=== PATIENT | male | born 1940 | race Caucasian/White ===

== ENCOUNTER 2021-09-14 16:00 | Observation (INO) | payer MEDICARE ==
[2021-09-14] MEDS ORDERED: SODIUM CHLORIDE 0.9% 1,000 ML IV STA (17:41)
[2021-09-14 18:18] LABS: Basophils # (A) 0.1 k/uL (0-0.2); Basophils % (A) 1 %; Eosinophils # (A) 0.3 k/uL (0-0.7); Eosinophils % (A) 3 %; HCT 50.6 % (39.0-53.0); HGB 16.5 gm/dL (13.0-17.5); Lymphocytes % (A) 19 %; MCH 29.4 pg (25.0-35.0); MCHC 32.7 g/dL (31.0-37.0); MCV 89.9 fL (80.0-100.0); Mean Platelet Volume 9.3; Monocytes # (A) 0.7 k/uL (0-1.0); Monocytes % (A) 7 %; Neutrophils # (A) 7.4 k/uL (1.3-7.7); Neutrophils % (A) 69 %; Platelet Count 174 k/uL (150-450); RBC 5.63 m/uL (4.30-5.90); RDW 12.8 % (11.5-15.5); WBC 10.8 k/uL (3.8-10.6)
[2021-09-14 18:35] LABS: Partial Thromboplastin Time 23.2 sec (22.0-30.0); Prothrombin Time 10.7 sec (9.0-12.0)
--- NOTE | 2021-09-14 18:58 | ED ---
GI Bleed HPI - General Chief complaint: GI Bleed Stated complaint: Rectal Bleeding/hernia Time Seen by Provider: 09/14/21 17:25 Source: patient, family Mode of arrival: ambulatory Limitations: no limitations - History of Present Illness Initial comments: Patient is a 81-year-old male who presents for evaluation of rectal bleeding. Patient has history of dementia and is a poor historian. His daughter is at bedside and helps provide history. Patient and his daughter live together. Patient's daughter states that In the middle of the night last night she heard her father shouting and found him in bed with several bloody napkins. Patient's daughter then found his underwear to be bloody. Patient's mother states that she checked his underwear again today which was bloody. Denies blood thinner use. Patient has not expressed any concern to his daughter. He has no concerns during my evaluation. Denies fever, chills, shortness of breath, chest pain, dizziness, lightheadedness, abdominal pain, nausea, vomiting, and diarrhea. Patient's daughter denies family history of colon cancer. Patient does have history of ulcerative colitis however has not had a flareup in several years per daughter. Last colonoscopy result unknown. - Related Data Home Medications Medication Instructions Recorded Confirmed Donepezil [Aricept] 10 mg PO HS 09/14/21 09/14/21 Meclizine [Antivert] 25 mg PO DAILY 09/14/21 09/14/21 Memantine HCl 10 mg PO BID 09/14/21 09/14/21 Prazosin HCl 2 mg PO DAILY 09/14/21 09/14/21 Allergies Allergy/AdvReac Type Severity Reaction Status Date / Time No Known Allergies Allergy Verified 09/14/21 18:33 Review of Systems ROS Statement: Those systems with pertinent positive or pertinent negative responses have been documented in the HPI. ROS Other: All systems not noted in ROS Statement are negative. Past Medical History Past Medical History: Dementia, Prostate Disorder Past Surgical History: Orthopedic Surgery Past Psychological History: No Psychological Hx Reported Smoking Status: Current every day smoker Past Alcohol Use History: Occasional Past Drug Use History: None Reported General Exam Limitations: no limitations General appearance: alert, in no apparent distress Head exam: Present: atraumatic, normocephalic, normal inspection Eye exam: Present: normal appearance, PERRL, EOMI. Absent: scleral icterus, conjunctival injection, periorbital swelling Neck exam: Present: normal inspection, full ROM Respiratory exam: Present: normal lung sounds bilaterally. Absent: respiratory distress, wheezes, rales, rhonchi, stridor Cardiovascular Exam: Present: normal rhythm, bradycardia, normal heart sounds. Absent: systolic murmur, diastolic murmur, rubs, gallop, JVD, S3, S4 Rectal exam: Present: normal rectal tone, heme (+) stool, bloody stool. Absent: hemorrhoids Course Vital Signs 09/14/21 16:30 Temperature 98.1 F Pulse Rate 58 L Respiratory 18 Rate Blood Pressure 118/65 O2 Sat by Pulse 96 Oximetry Medical Decision Making - Medical Decision Making This is a 81-year-old male who presents with rectal bleeding. Thorough history and examination were performed. Patient is a poor historian due to dementia but appears well. There is gross blood visualized while obtaining stool occult blood sample. I do not feel any internal hemorrhoids during rectal sleep. No e xternal hemorrhoids visualized. Laboratory studies were obtained. Hemoglobin is stable at 16.5. Stool occult blood is positive. Other laboratory studies are relatively unremarkable. Results discussed with patient and patient's daughter. Patient's daughter is a meter repair shop supervisor. Patient will need a scope and she would like to manage this outpatient. Patient will be discharged with strict return parameters. He will be referred to GI specialist. Patient's daughter verbalizes understanding. Dr. Willis is my attending. - Lab Data Result diagrams: 09/14/21 17:46 09/14/21 18:05 Lab Results 09/14/21 09/14/21 09/14/21 Range/Units 17:46 17:46 17:46 WBC 10.8 H (3.8-10.6) k/uL RBC 5.63 (4.30-5.90) m/uL Hgb 16.5 (13.0-17.5) gm/dL Hct 50.6 (39.0-53.0) % MCV 89.9 (80.0-100.0) fL MCH 29.4 (25.0-35.0) pg MCHC 32.7 (31.0-37.0) g/dL RDW 12.8 (11.5-15.5) % Plt Count 174 (150-450) k/uL MPV 9.3 Neutrophils % 69 % Lymphocytes % 19 % Monocytes % 7 % Eosinophils % 3 % Basophils % 1 % Neutrophils # 7.4 (1.3-7.7) k/uL Lymphocytes # 2.0 (1.0-4.8) k/uL Monocytes # 0.7 (0-1.0) k/uL Eosinophils # 0.3 (0-0.7) k/uL Basophils # 0.1 (0-0.2) k/uL PT 10.7 (9.0-12.0) sec INR 1.0 (<1.2) APTT 23.2 (22.0-30.0) sec Sodium (137-145) mmol/L Potassium (3.5-5.1) mmol/L Chloride (98-107) mmol/L Carbon Dioxide (22-30) mmol/L Anion Gap mmol/L BUN (9-20) mg/dL Creatinine (0.66-1.25) mg/dL Est GFR (CKD-EPI)AfAm (>60 ml/min/1.73 sqM) Est GFR (CKD-EPI)NonAf (>60 ml/min/1.73 sqM) Glucose (74-99) mg/dL Calcium (8.4-10.2) mg/dL Total Bilirubin (0.2-1.3) mg/dL AST (17-59) U/L ALT (4-49) U/L Alkaline Phosphatase (38-126) U/L Troponin I <0.012 (0.000-0.034) ng/mL Total Protein (6.3-8.2) g/dL Albumin (3.5-5.0) g/dL Stool Occult Blood (Negative) Blood Type Blood Type Recheck Bld Type Recheck Status Antibody Screen Spec Expiration Date 09/14/21 09/14/21 09/14/21 Range/Units 17:46 18:05 19:16 WBC (3.8-10.6) k/uL RBC (4.30-5.90) m/uL Hgb (13.0-17.5) gm/dL Hct (39.0-53.0) % MCV (80.0-100.0) fL MCH (25.0-35.0) pg MCHC (31.0-37.0) g/dL RDW (11.5-15.5) % Plt Count (150-450) k/uL MPV Neutrophils % % Lymphocytes % % Monocytes % % Eosinophils % % Basophils % % Neutrophils # (1.3-7.7) k/uL Lymphocytes # (1.0-4.8) k/uL Monocytes # (0-1.0) k/uL Eosinophils # (0-0.7) k/uL Basophils # (0-0.2) k/uL PT (9.0-12.0) sec INR (<1.2) APTT (22.0-30.0) sec Sodium 138 (137-145) mmol/L Potassium 3.9 (3.5-5.1) mmol/L Chloride 106 (98-107) mmol/L Carbon Dioxide 22 (22-30) mmol/L Anion Gap 10 mmol/L BUN 21 H (9-20) mg/dL Creatinine 0.89 (0.66-1.25) mg/dL Est GFR (CKD-EPI)AfAm >90 (>60 ml/min/1.73 sqM) Est GFR (CKD-EPI)NonAf 82 (>60 ml/min/1.73 sqM) Glucose 100 H (74-99) mg/dL Calcium 9.3 (8.4-10.2) mg/dL Total Bilirubin 0.9 (0.2-1.3) mg/dL AST 27 (17-59) U/L ALT 10 (4-49) U/L Alkaline Phosphatase 76 (38-126) U/L Troponin I (0.000-0.034) ng/mL Total Protein 6.9 (6.3-8.2) g/dL Albumin 4.2 (3.5-5.0) g/dL Stool Occult Blood Positive (Negative) Blood Type O Positive Blood Type Recheck No Previous Record Bld Type Recheck Status CABO Indicated Antibody Screen NEGATIVE Spec Expiration Date 09/17/20212345 - EKG Data EKG Comments: EKG taken at 17:33 Sinus bradycardia with first-degree AV block with occasional supraventricular premature complexes Ventricular rate 54 AZ interval 259 QRS duration 94 QTC 458 Disposition Clinical Impression: Rectal bleeding Disposition: HOME SELF-CARE Condition: Fair Instructions (If sedation given, give patient instructions): Gastrointestinal Bleeding (ED) Additional Instructions: Please follow up with GI specialist at earliest available appointment. Return to the emergency department if you experience new, concerning, or worsening symptoms. Is patient prescribed a controlled substance at d/c from ED?: No Referrals: Meryl Gonzalez MD [Primary Care Provider] - 1-2 days Merari Cameron MD [STAFF PHYSICIAN] - 1-2 days Time of Disposition: 19:35
[2021-09-14 19:21] LABS: African American GFR (CKD) >90 (>60 ml/min/1.73 sqM); Albumin 4.2 g/dL (3.5-5.0); Alkaline Phosphatase 76 U/L (38-126); Anion Gap 10 mmol/L; Blood Urea Nitrogen 21 mg/dL (9-20); Calcium 9.3 mg/dL (8.4-10.2); Carbon Dioxide 22 mmol/L (22-30); Chloride 106 mmol/L (98-107); Glucose 100 mg/dL (74-99); Non-African American GFR(CKD) 82 (>60 ml/min/1.73 sqM); Sodium 138 mmol/L (137-145); Total Bilirubin 0.9 mg/dL (0.2-1.3); Total Protein 6.9 g/dL (6.3-8.2)
[2021-09-14 19:25] LABS: ALT 10 U/L (4-49); AST 27 U/L (17-59); Potassium 3.9 mmol/L (3.5-5.1)
[2021-09-14] MEDS: SODIUM CHLORIDE 0.9% 1,000 ML IV SCH (21:05)
[2021-09-14 21:57] LABS: ALT 10 U/L (4-49); AST 23 U/L (17-59); African American GFR (CKD) >90 (>60 ml/min/1.73 sqM); Albumin 3.8 g/dL (3.5-5.0); Alkaline Phosphatase 73 U/L (38-126); Anion Gap 6 mmol/L; Blood Urea Nitrogen 17 mg/dL (9-20); Calcium 8.7 mg/dL (8.4-10.2); Carbon Dioxide 24 mmol/L (22-30); Chloride 108 mmol/L (98-107); Glucose 113 mg/dL (74-99); Non-African American GFR(CKD) 83 (>60 ml/min/1.73 sqM); Potassium 3.6 mmol/L (3.5-5.1); Sodium 138 mmol/L (137-145); Total Bilirubin 0.8 mg/dL (0.2-1.3); Total Protein 6.3 g/dL (6.3-8.2)
--- NOTE | 2021-09-15 00:45 | P.HPIM ---
History of Present Illness H&P Date: 09/14/21 Patient is a 81-year-old male with a PMH of dementia and BPH who was brought into the emergency room by his daughter for GI bleeding. The history is largely provided by the daughter due to the patient's underlying dementia. She reports that the patient developed bright red bleeding per rectum yesterday evening, which persisted throughout the night. She notes finding several bloodsoaked undergarments after she returned from work in the evening today, at which point she decided to bring him to the emergency room. The patient denied experiencing abdominal pain. The patient however did have a right inguinal hernia that was enlarged and painful 3-4 days ago, which resolved spontaneously with warm compresses within a few hours as per the daughter. There were no reports of abdominal pain, nausea, or vomiting in the past 24 hours. Patient denied any additional complaints and reported feeling well. Denied experiencing chest discomfort, shortness of breath, fever, chills, cough. The patient does not take any antiplatelet or anticoagulants. The daughter was unable to recall when the patient's last colonoscopy was performed. Laboratory evaluation in the emergency room revealed a hemoglobin of 16.5 with no baseline available for comparison with stool occult blood positive. Review of systems: Pertinent positives and negatives as discussed in HPI, a complete review of systems was performed and all other systems are negative. Physical examination: General: non toxic, no distress, appears at stated age, normal weight Derm: no unusual rashes/lesions no unusual ecchymoses, warm, dry Head: atraumatic, normocephalic, symmetric Eyes: EOMI, no lid lag, anicteric sclera, pupils equal round reactive to light ENT: Nose and ears atraumatic, no thrush, no pharyngeal erythema Neck: No thyromegaly, no cervical lymphadenopathy, trachea midline, supple Mouth: no lip lesion, mucus membranes moist Cardiovascular: S1S2 reg, no murmur, positive posterior tibial pulse bilateral, no edema, capillary refill less than 2 seconds Lungs: CTA bilateral, no rhonchi, no rales , no accessory muscle use Abdominal: soft, nontender to palpation, no guarding, no appreciable organomegaly, minimal right reducible inguinal hernia nontender, normal bowel sounds Ext: no gross muscle atrophy, muscle strength 5 out of 5 in all 4 extremities grossly, no contractures, Neuro: CN II-XI grossly intact, light touch intact all 4 extremities, finger to nose within normal limits, Psych: Alert, oriented to person and time, believes he is in a hospital in [place], able to state the year but not the month Assessment/plan Hematochezia -Surgery consulted in lieu of GI off service -Monitor CBC -Nothing by mouth for now -IV fluids DVT prophylaxis -IPCDs The patient is admitted with an anticipated less than 2 midnight stay for evaluation of GI bleeding CODE STATUS: Full Code Discussed with: Patient Anticipated discharge date: in am Anticipated discharge place: Home Past Medical History Past Medical History: Dementia, Prostate Disorder Past Surgical History: Orthopedic Surgery Past Psychological History: No Psychological Hx Reported Smoking Status: Current every day smoker Past Alcohol Use History: Occasional Past Drug Use History: None Reported Medications and Allergies Home Medications Medication Instructions Recorded Confirmed Type Donepezil [Aricept] 10 mg PO HS 09/14/21 09/14/21 History Meclizine [Antivert] 25 mg PO DAILY 09/14/21 09/14/21 History Memantine HCl 10 mg PO BID 09/14/21 09/14/21 History Prazosin HCl 2 mg PO DAILY 09/14/21 09/14/21 History Allergies Allergy/AdvReac Type Severity Reaction Status Date / Time No Known Allergies Allergy Verified 09/14/21 18:33 Physical Exam Vitals: Vital Signs Temp Pulse Resp BP Pulse Ox 09/14/21 22:21 98.2 F 61 20 162/97 97 09/14/21 16:30 98.1 F 58 L 18 118/65 96 Intake and Output 09/14/21 09/14/21 09/14/21 06:59 14:59 22:59 Other: Weight 79.379 kg Results CBC & Chem 7: 09/14/21 17:46 09/14/21 21:35 Labs: Abnormal Lab Results - Last 24 Hours (Table) 09/14/21 09/14/21 09/14/21 Range/Units 17:46 18:05 21:35 WBC 10.8 H (3.8-10.6) k/uL Chloride 108 H (98-107) mmol/L BUN 21 H (9-20) mg/dL Glucose 100 H 113 H (74-99) mg/dL
[2021-09-15] MEDS ORDERED: PANTOPRAZOLE 40 MG/10 ML VIAL IVP ONE (03:58)
[2021-09-15] MEDS: SODIUM CHLORIDE 0.9% 1,000 ML IV SCH ×2 (07:37→21:53)
[2021-09-15] MEDS: PRAZOSIN 1 MG CAP PO SCH (07:58)
[2021-09-15] MEDS: MECLIZINE 25 MG TAB PO SCH (07:58)
[2021-09-15] MEDS: MEMANTINE 10 MG TAB PO SCH ×2 (07:58→19:09)
[2021-09-15 08:37] LABS: HCT 44.5 % (39.6-50.0); HGB 14.6 g/dL (13.0-17.0); MCH 28.9 pg (27.0-32.0); MCHC 32.8 g/dL (32.0-37.0); MCV 87.9 fL (80.0-97.0); Mean Platelet Volume 12.7 fL (9.5-12.2); NRBC Per 100 WBC 0 /100 WBCS (0.0-0.0); Platelet Count 173 X 10*3/uL (140-440); RBC 5.06 X 10*6/uL (4.40-5.60); RDW 12.8 % (11.5-14.5); WBC 9.99 X 10*3/uL (4.50-10.00)
--- NOTE | 2021-09-15 09:16 | P.GSCN ---
History of Present Illness Consult date: 09/15/21 Reason for Consult: GI bleed History of present illness: 81-year-old male comes in the ER with complaints of recent rectal bleeding. Blood was bright during color and seemed to be mixed with the stools. No associated abdominal pain or vomiting. No melanotic stools. Patient apparently with a remote history of ulcerative colitis. Last colonoscopy over 10 years ago. Patient currently lives with his daughter and son who are part of our m edical staff. Patient pleasantly confused with dementia. Patient also has findings of inguinal hernia on the right-hand side. This has given the patient some difficulty with occasional episodes of pain. Hernia has been able to be reduced on prior evaluation by his family. Symptoms seem to be increasing somewhat in frequency. No history of previous repair. Review of Systems The patient denies any acute changes in vision or hearing, no dysphagia or odynophagia, no chest pain or shortness of breath, no dysuria or hematuria, no headache, no runny nose, no melena, no unexplained weight loss Past Medical History Past Medical History: Dementia, Prostate Disorder History of Any Multi-Drug Resistant Organisms: None Reported Past Surgical History: Orthopedic Surgery Past Psychological History: No Psychological Hx Reported Smoking Status: Current every day smoker Past Alcohol Use History: Occasional Past Drug Use History: None Reported Medications and Allergies Home Medications Medication Instructions Recorded Confirmed Type Donepezil [Aricept] 10 mg PO HS 09/14/21 09/14/21 History Meclizine [Antivert] 25 mg PO DAILY 09/14/21 09/14/21 History Memantine HCl 10 mg PO BID 09/14/21 09/14/21 History Prazosin HCl 2 mg PO DAILY 09/14/21 09/14/21 History Allergies Allergy/AdvReac Type Severity Reaction Status Date / Time No Known Allergies Allergy Verified 09/14/21 18:33 Surgical - Exam Vital Signs Temp Pulse Resp BP Pulse Ox 98.1 F 58 L 18 118/65 96 09/14/21 16:30 09/14/21 16:30 09/14/21 16:30 09/14/21 16:30 09/14/21 16:30 Physical exam: General: Well-developed, well-nourished HEENT: Normocephalic, sclerae nonicteric Abdomen: Nontender, nondistended, reducible right inguinal hernia Extremities: No edema Neuro: Alert Results - Labs 09/15/21 06:08 09/14/21 21:35 Abnormal Lab Results - Last 24 Hours (Table) 09/14/21 09/14/21 09/14/21 Range/Units 17:46 18:05 21:35 WBC 10.8 H (3.8-10.6) k/uL MPV (9.5-12.2) fL Chloride 108 H (98-107) mmol/L BUN 21 H (9-20) mg/dL Glucose 100 H 113 H (74-99) mg/dL 09/15/21 Range/Units 06:08 WBC (3.8-10.6) k/uL MPV 12.7 H (9.5-12.2) fL Chloride (98-107) mmol/L BUN (9-20) mg/dL Glucose (74-99) mg/dL Diabetes panel 09/14/21 09/14/21 Range/Units 18:05 21:35 Sodium 138 138 (137-145) mmol/L Potassium 3.9 3.6 (3.5-5.1) mmol/L Chloride 106 108 H (98-107) mmol/L Carbon Dioxide 22 24 (22-30) mmol/L BUN 21 H 17 (9-20) mg/dL Creatinine 0.89 0.84 (0.66-1.25) mg/dL Glucose 100 H 113 H (74-99) mg/dL Calcium 9.3 8.7 (8.4-10.2) mg/dL AST 27 23 (17-59) U/L ALT 10 10 (4-49) U/L Alkaline Phosphatase 76 73 (38-126) U/L Total Protein 6.9 6.3 (6.3-8.2) g/dL Albumin 4.2 3.8 (3.5-5.0) g/dL Calcium panel 09/14/21 09/14/21 Range/Units 18:05 21:35 Calcium 9.3 8.7 (8.4-10.2) mg/dL Albumin 4.2 3.8 (3.5-5.0) g/dL Pituitary panel 09/14/21 09/14/21 Range/Units 18:05 21:35 Sodium 138 138 (137-145) mmol/L Potassium 3.9 3.6 (3.5-5.1) mmol/L Chloride 106 108 H (98-107) mmol/L Carbon Dioxide 22 24 (22-30) mmol/L BUN 21 H 17 (9-20) mg/dL Creatinine 0.89 0.84 (0.66-1.25) mg/dL Glucose 100 H 113 H (74-99) mg/dL Calcium 9.3 8.7 (8.4-10.2) mg/dL Adrenal panel 09/14/21 09/14/21 Range/Units 18:05 21:35 Sodium 138 138 (137-145) mmol/L Potassium 3.9 3.6 (3.5-5.1) mmol/L Chloride 106 108 H (98-107) mmol/L Carbon Dioxide 22 24 (22-30) mmol/L BUN 21 H 17 (9-20) mg/dL Creatinine 0.89 0.84 (0.66-1.25) mg/dL Glucose 100 H 113 H (74-99) mg/dL Calcium 9.3 8.7 (8.4-10.2) mg/dL Total Bilirubin 0.9 0.8 (0.2-1.3) mg/dL AST 27 23 (17-59) U/L ALT 10 10 (4-49) U/L Alkaline Phosphatase 76 73 (38-126) U/L Total Protein 6.9 6.3 (6.3-8.2) g/dL Albumin 4.2 3.8 (3.5-5.0) g/dL Assessment and Plan (1) Rectal bleeding Narrative/Plan: 81-year-old male with admission for GI bleed. We'll proceed with upper and lower endoscopy tomorrow morning. Continue clear liquids for today. Outpatient management of inguinal hernia will be discussed with family after endoscopy. Current Visit: Yes Status: Acute Code(s): K62.5 - HEMORRHAGE OF ANUS AND RECTUM SNOMED Code(s): 96875927
[2021-09-15] MEDS ORDERED: PEG 3350-NA SULF,BICARB,CL/KCL 4,000 ML BOTTLE PO ONE (12:00)
[2021-09-15] MEDS ORDERED: LOSARTAN 50 MG TAB PO STA (13:53)
--- NOTE | 2021-09-15 16:35 | P.PN ---
Subjective Progress Note Date: 09/15/21 History of present illness per H&P: Patient is a 81-year-old male with a PMH of dementia and BPH who was brought into the emergency room by his daughter for GI bleeding. The history is largely provided by the daughter due to the patient's underlying dementia. She reports that the patient developed bright red bleeding per rectum yesterday evening, which persisted throughout the night. She notes finding several bloodsoaked undergarments after she returned from work in the evening today, at which point she decided to bring him to the emergency room. The patient denied experiencing abdominal pain. The patient however did have a right inguinal hernia that was enlarged and painful 3-4 days ago, which resolved spontaneously with warm compresses within a few hours as per the daughter. There were no reports of abdominal pain, nausea, or vomiting in the past 24 hours. Patient denied any additional complaints and reported feeling well. Denied experiencing chest discomfort, shortness of breath, fever, chills, cough. The patient does not take any antiplatelet or anticoagulants. The daughter was unable to recall when the patient's last colonoscopy was performed. Laboratory evaluation in the emergency room revealed a hemoglobin of 16.5 with no baseline available for comparison with stool occult blood positive. Interval history: Patient was examined at the bedside. He is alert oriented to himself. He denies any chest pain or shortness of breath. At stated that the patient continued to have bright red blood in his brief. Uncontrolled blood pressure. Physical examination: General: no distress, appears at stated age Derm: warm, dry Head: atraumatic, normocephalic, symmetric Eyes: EOMI, no lid lag, anicteric sclera Mouth: no lip lesion, mucus membranes moist Cardiovascular: S1S2 reg, no murmur, positive posterior tibial pulse bilateral, Lungs: CTA bilateral, no rhonchi, no rales , no accessory muscle use Abdominal: soft, nontender to palpation, no guarding, no appreciable organomegaly Ext: no gross muscle atrophy, no edema, no contractures Neuro: CN II-XI grossly intact, no focal neuro deficits Psych: Alert, oriented to self and place, appropriate affect Assessment/plan Hematochezia -Hemoglobin stable -Surgery consulted plan for EGD and colonoscopy tomorrow -Monitor CBC -Nothing by mouth for now -IV fluids Uncontrolled hypertension -Start losartan 100 mg daily -When necessary Vasotec Alzheimer-type dementia DVT prophylaxis -IPCDs CODE STATUS: Full Code Objective - Vital Signs Vital signs: Vital Signs Temp 97.6 F 09/15/21 13:39 Pulse 54 L 09/15/21 15:30 Resp 16 09/15/21 13:39 BP 181/95 09/15/21 15:30 Pulse Ox 98 09/15/21 15:30 FiO2 Intake & Output 09/14/21 09/15/21 09/15/21 18:59 06:59 18:59 Intake Total 480 Balance 480 Weight 79.379 kg 79.379 kg Intake: Oral 480 Other: Voiding Method Toilet Toilet Urinal # Voids 1 2 # Bowel Movements 2 - Labs CBC & Chem 7: 09/15/21 06:08 09/14/21 21:35 Labs: Abnormal Lab Results - Last 24 Hours (Table) 09/14/21 09/14/21 09/14/21 Range/Units 17:46 18:05 21:35 WBC 10.8 H (3.8-10.6) k/uL MPV (9.5-12.2) fL Chloride 108 H (98-107) mmol/L BUN 21 H (9-20) mg/dL Glucose 100 H 113 H (74-99) mg/dL 09/15/21 Range/Units 06:08 WBC (3.8-10.6) k/uL MPV 12.7 H (9.5-12.2) fL Chloride (98-107) mmol/L BUN (9-20) mg/dL Glucose (74-99) mg/dL
[2021-09-15] MEDS: ENALAPRILAT 1.25 MG/ML 1 ML VIAL IVP PRN (17:27)
[2021-09-15] MEDS: PANTOPRAZOLE 40 MG/10 ML VIAL IVP SCH (19:09)
[2021-09-15] MEDS ORDERED: DONEPEZIL 10 MG TAB PO SCH (21:00)
[2021-09-16] MEDS: ENALAPRILAT 1.25 MG/ML 1 ML VIAL IVP PRN (00:42)
[2021-09-16] MEDS: MEMANTINE 10 MG TAB PO SCH (07:20)
[2021-09-16] MEDS: MECLIZINE 25 MG TAB PO SCH (07:20)
[2021-09-16] MEDS: PANTOPRAZOLE 40 MG/10 ML VIAL IVP SCH (07:20)
[2021-09-16] MEDS: PRAZOSIN 1 MG CAP PO SCH (07:20)
[2021-09-16] MEDS: SODIUM CHLORIDE 0.9% 1,000 ML IV SCH (07:23)
[2021-09-16] MEDS ORDERED: LIDOCAINE 2% INJ 20 MG/ML (2 ML VIAL) ONE (07:59)
[2021-09-16] MEDS ORDERED: PROPOFOL 10 MG/ML 20 ML VIAL IV ONE (07:59)
[2021-09-16] MEDS ORDERED: IV FLUID CONTINUATION 1,000 ML IV ONE (08:17)
--- NOTE | 2021-09-16 08:46 | P.PCN ---
Date of Procedure: 09/16/21 Procedure(s) Performed: PREOPERATIVE DIAGNOSIS: GI bleed POSTOPERATIVE DIAGNOSIS: Mild gastritis, small hiatal hernia, mild diverticulosis, proctosigmoiditis, transverse colon polyp 2 PROCEDURE: 1. EGD with biopsy 2. Colonoscopy with snare polypectomy and biopsy ANESTHESIA: [facility] [place] SURGEON: Makr Gonzalez M.D. SPECIMENS: Antrum, polyps, proctitis ENDOSCOPIC PROCEDURE: The patient was on the endoscopy table in the left decubitus position. The Olympus gastroscope was inserted into the oropharynx and passed under direct visualization to the region of the third portion of the duodenum. From that point the scope was slowly withdrawn inspecting all surfaces carefully. There were no neoplastic inflammatory or polypoid lesions throughout the duodenum. The pylorus was widely patent. The stomach was carefully inspected. There was mild gastritis present. A biopsy of the antrum took place to rule out H. pylori. Retroflexion revealed a small sliding hiatal hernia measuring only 1.5 cm in length. The esophagus was then carefully examined. There were no neoplastic inflammatory or polypoid lesions throughout the visualized esophagus. The patient was kept on the endoscopy table in the left decubitus position. The Olympus colonoscope was inserted into the anus and passed under direct visualization to the base of the cecum. The appendiceal orifice was visualized. From that point the scope was slowly withdrawn inspecting all surfaces carefully. There were no neoplastic inflammatory or polypoid lesions throughout the cecum and ascending colon. In the transverse colon 2 small polyps were seen and removed using the snare with cautery technique. The remainder of the transverse and descending colon appeared normal. In the rectum and sigmoid colon there was circumferential erythema of mucosa with some friability. This was consistent with patient's previous history of colitis. This extended up to 20 cm. Random biopsies of the proctitis was taken. There was mild left-sided diverticulosis noted. Digital rectal examination was normal. The patient was taken to the recovery room in stable condition per anesthesia guidelines. RECOMMENDATIONS: Await biopsy results. Begin empiric topical therapy for ulcerative colitis. Resume diet. May discharged today and follow up with GI and myself postdischarge.
[2021-09-16] MEDS ORDERED: LOSARTAN 50 MG TAB PO SCH (09:00)
[2021-09-16 09:02] VITALS: BP 156/80; PULSE 58; RESP 16; TEMP 97.4
--- NOTE | 2021-09-16 10:06 | P.DS ---
Providers Date of admission: 09/14/21 22:00 Expected date of discharge: 09/16/21 Attending physician: Leda Dyer MD Consults: 09/14/21 20:31 Consult Physician Routine Consulting Provider: Mark Gonzalez Consult Reason/Comments: hematochezia Do you want consulting provider notified?: Yes Primary care physician: Meryl Gonzalez [facility] Course: History of present illness per H&P: Patient is a 81-year-old male with a PMH of dementia and BPH who was brought into the emergency room by his daughter for GI bleeding. The history is largely provided by the daughter due to the patient's underlying dementia. She reports that the patient developed bright red bleeding per rectum yesterday evening, which persisted throughout the night. She notes finding several bloodsoaked undergarments after she returned from work in the evening today, at which point she decided to bring him to the emergency room. The patient denied experiencing abdominal pain. The patient however did have a right inguinal hernia that was enlarged and painful 3-4 days ago, which resolved spontaneously with warm compresses within a few hours as per the daughter. There were no reports of abdominal pain, nausea, or vomiting in the past 24 hours. Patient denied any additional complaints and reported feeling well. Denied experiencing chest discomfort, shortness of breath, fever, chills, cough. The patient does not take any antiplatelet or anticoagulants. The daughter was unable to recall when the patient's last colonoscopy was performed. Laboratory evaluation in the emergency room revealed a hemoglobin of 16.5 with no baseline available for comparison with stool occult blood positive. Physical examination on discharge: General: no distress, appears at stated age Derm: warm, dry Head: atraumatic, normocephalic, symmetric Eyes: EOMI, no lid lag, anicteric sclera Mouth: no lip lesion, mucus membranes moist Cardiovascular: S1S2 reg, no murmur, positive posterior tibial pulse bilateral, Lungs: CTA bilateral, no rhonchi, no rales , no accessory muscle use Abdominal: soft, nontender to palpation, no guarding, no appreciable organomegaly Ext: no gross muscle atrophy, no edema, no contractures Neuro: CN II-XI grossly intact, no focal neuro deficits Psych: Alert, oriented to self and place, appropriate affect Hospital course: Hematochezia possibly secondary to colitis -Gen. surgery suspecting ulcerative colitis -Hemoglobin stable -Status post EGD and colonoscopy September 16 which showed Mild gastritis, small hiatal hernia, mild diverticulosis, proctosigmoiditis, transverse colon polyp 2 -Gen. surgery prescribed mesalamine oral and suppository on discharge -Patient was instructed to follow-up with Dr. Gonzalez -Patient will benefit from outpatient GI follow-up with Dr. Cameron Uncontrolled hypertension -Per controlled with losartan patient will be discharged with losartan 50 mg twice daily -When necessary Vasotec Alzheimer-type dementia Patient Condition at Discharge: Stable Plan - Discharge Summary New Discharge Prescriptions: New Mesalamine [Rowasa] 4 gm RECTAL HS #30 dose Mesalamine [Pentasa] 500 mg PO TID #90 cap Losartan [Cozaar] 50 mg PO BID 30 Days #60 tab Continue Prazosin HCl 2 mg PO DAILY Donepezil [Aricept] 10 mg PO HS Meclizine [Antivert] 25 mg PO DAILY Memantine HCl 10 mg PO BID Discharge Medication List Donepezil [Aricept] 10 mg PO HS 09/14/21 [History] Meclizine [Antivert] 25 mg PO DAILY 09/14/21 [History] Memantine HCl 10 mg PO BID 09/14/21 [History] Prazosin HCl 2 mg PO DAILY 09/14/21 [History] Losartan [Cozaar] 50 mg PO BID 30 Days #60 tab 09/16/21 [Rx] Mesalamine [Pentasa] 500 mg PO TID #90 cap 09/16/21 [Rx] Mesalamine [Rowasa] 4 gm RECTAL HS #30 dose 09/16/21 [Rx] Follow up Appointment(s)/Referral(s): Mark Gonzalez MD [Medical Doctor] - 1 Week Meryl Gonzalez MD [Primary Care Provider] - 1-2 days Merari Cameron MD [STAFF PHYSICIAN] - 1-2 days Patient Instructions/Handouts: Gastrointestinal Bleeding (ED) Activity/Diet/Wound Care/Special Instructions: Please follow up with GI specialist at earliest available appointment. Return to the emergency department if you experience new, concerning, or worsening symptoms.
[2021-09-16 10:24] LABS: Basophils # (A) 0.07 X 10*3/uL (0.00-0.10); Basophils % (A) 0.8 %; Eosinophils # (A) 0.58 X 10*3/uL (0.04-0.35); Eosinophils % (A) 6.7 %; HCT 44.6 % (39.6-50.0); HGB 14.6 g/dL (13.0-17.0); Immature Grans, Automated 0.1 %; Lymphocytes # (A) 2.27 X 10*3/uL (0.90-5.00); Lymphocytes % (A) 26.4 %; MCH 28.9 pg (27.0-32.0); MCHC 32.7 g/dL (32.0-37.0); MCV 88.3 fL (80.0-97.0); Mean Platelet Volume 12.8 fL (9.5-12.2); Monocytes # (A) 0.64 X 10*3/uL (0.20-1.00); Monocytes % (A) 7.4 %; NRBC Per 100 WBC 0 /100 WBCS (0.0-0.0); Neutrophils # (A) 5.03 X 10*3/uL (1.80-7.70); Neutrophils % (A) 58.6 %; Platelet Count 174 X 10*3/uL (140-440); RBC 5.05 X 10*6/uL (4.40-5.60); RDW 12.8 % (11.5-14.5)
[2021-09-16 11:02] LABS: African American GFR (CKD) 93.8 (60.0-200.0); Anion Gap 11.5 mmol/L (10.00-18.00); BUN/Creat Ratio 8.56 Ratio (12.00-20.00); Blood Urea Nitrogen 7.7 mg/dL (9.0-27.0); Calcium 8.9 mg/dL (8.7-10.3); Carbon Dioxide 25.5 mmol/L (20.0-27.5); Non-African American GFR(CKD) 80.9 (60.0-200.0); Potassium 3.3 mmol/L (3.5-5.5)
[2021-09-16] MEDS ORDERED: MESALAMINE 1,000 MG SUPP RECTAL SCH (21:00)
== END 2021-09-16 14:23 | disposition home or self-care (01) ==
LOC: EC 16:00 → 6NMEDSUR 22:00
PROVIDERS: ADMIT Internal Medicine; ATTEND Internal Medicine
DX: K92.1 Melena (principal); K29.70 Gastritis, unspecified, without bleeding; K44.9 Diaphragmatic hernia without obstruction or gangrene; K57.90 Diverticulosis of intestine, part unspecified, without perforation or abscess without bleeding; K63.89 Other specified diseases of intestine; K63.5 Polyp of colon; I10 Essential (primary) hypertension; G30.9 Alzheimer's disease, unspecified; F02.80 Dementia in other diseases classified elsewhere, unspecified severity, without behavioral disturbance, psychotic disturbance, mood disturbance, and anxiety; N40.0 Benign prostatic hyperplasia without lower urinary tract symptoms; F17.200 Nicotine dependence, unspecified, uncomplicated; Z79.899 Other long term (current) drug therapy; Z71.9 Counseling, unspecified
CPT/HCPCS: 96361 ×3; 96374; 99285; 36415; 93005; 86900; 86901; 88305; 80053; 80048; 84484; 85025 ×2; 85027; 85610; 85730; 86850; 82272; 88342; 45380; 45385; 43239; G0378 ×3; J2704; C9113 ×2; J2001

== ENCOUNTER → 2022-01-24 | Outpatient (CLI) | payer MEDICARE ==
[2022-01-24 19:32] LABS: HCT 45.9 % (39.6-50.0); HGB 15.9 g/dL (13.0-17.0); MCH 29.8 pg (27.0-32.0); MCHC 34.6 g/dL (32.0-37.0); Mean Platelet Volume 12.5 fL (9.5-12.2); NRBC Per 100 WBC 0 /100 WBCS (0.0-0.0); Platelet Count 189 X 10*3/uL (140-440); RBC 5.34 X 10*6/uL (4.40-5.60); RDW 12.2 % (11.5-14.5)
[2022-01-24 19:36] LABS: ALT <5 U/L (10-49); AST 14 U/L (14-35); African American GFR (CKD) 82.6 (60.0-200.0); Albumin 4.2 g/dL (3.8-4.9); Albumin/Globulin Ratio 1.62 (1.60-3.17); Alkaline Phosphatase 88 U/L (41-126); Blood Urea Nitrogen 14.9 mg/dL (9.0-27.0); Calcium 9.3 mg/dL (8.7-10.3); Carbon Dioxide 26.2 mmol/L (20.0-27.5); Chloride 104 mmol/L (96-109); Globulin 2.6 g/dL (1.6-3.3); Glucose 87 mg/dL (70-110); Non-African American GFR(CKD) 71.3 (60.0-200.0); Sodium 140 mmol/L (135-145); Total Protein 6.8 g/dL (6.2-8.2)
== END | disposition home or self-care (01) ==
LOC: LABWHC1 12:56
PROVIDERS: ATTEND Surgery
DX: Z01.812 Encounter for preprocedural laboratory examination (principal)
CPT/HCPCS: 36415; 80053; 85027

== ENCOUNTER 2022-01-28 06:30 | Observation (INO) | payer MEDICARE ==
[2022-01-25 16:37] VITALS: BMI 24.3
[~2022-01-28 06:30] MED LIST: ACETAMINOPHEN TAB 500 MG TAB PO PRN; HEPARIN SODIUM,PORCINE/PF 5,000 UNIT/0.5 ML SYRINGE SQ PRN
[2022-01-28] MEDS ORDERED: DEXAMETHASONE SOD PHOSPHATE 4 MG/ML 1 ML VIAL IV ONE (06:51)
[2022-01-28] MEDS ORDERED: ONDANSETRON 4 MG/2 ML VIAL IVP ONE (06:51)
[2022-01-28] MEDS ORDERED: MIDAZOLAM 2 MG/2 ML VIAL IV PRN (06:51)
[2022-01-28] MEDS ORDERED: LIDOCAINE 1% (10MG/ML) FOR IV START INTRADERMA PRN (06:51)
[2022-01-28] MEDS: LACTATED RINGERS 1,000 ML IV SCH (07:30)
[2022-01-28] MEDS ORDERED: fentaNYL (PF) 50 MCG/ML 2 ML AMP ONE (07:37)
[2022-01-28] MEDS ORDERED: MIDAZOLAM 2 MG/2 ML VIAL ONE (07:37)
[2022-01-28] MEDS ORDERED: GLYCOPYRROLATE 0.2 MG/ML 2 ML VIAL ONE (07:37)
[2022-01-28] MEDS ORDERED: PROPOFOL 10 MG/ML 20 ML VIAL IV ONE (07:37)
[2022-01-28] MEDS ORDERED: BUPIVACAINE (PF) 0.25% 30 ML VIAL SQ ONE (07:40)
[2022-01-28] MEDS ORDERED: ACETAMINOPHEN TAB 325 MG TAB PO PRN (08:57)
[2022-01-28] MEDS ORDERED: NALOXONE 0.4 MG/ML 1 ML VIAL IV PRN (08:57)
[2022-01-28] MEDS ORDERED: traMADol 50 MG TAB PO PRN (08:57)
--- NOTE | 2022-01-28 09:20 | P.OP ---
Date of Procedure: 01/28/22 Procedure(s) Performed: PREOPERATIVE DIAGNOSIS: Right inguinal hernia POSTOPERATIVE DIAGNOSIS: Right direct and indirect inguinal hernia PROCEDURE: Open repair right inguinal hernia with mesh SURGEON: Dr. Gonzalez ANESTHESIA: Spinal OPERATIVE PROCEDURE DETAILS: Patient was placed in the operating table in the supine position and placed under spinal anesthesia. An oblique incision was made in the right groin. Dissection down through the subcutaneous tissues took place using electrocautery. The external oblique fascia was incised using a scalpel. This opening was lengthened using the Metzenbaum scissors. The spermatic cord was encircled with a [place] drain. The structures were identified and preserved. Careful dissection revealed an indirect hernia sac. This was carefully dissected back to the internal inguinal ring where it was ligated using 2 separate 0 silk stick tie sutures. The patient also had a small to moderate sized direct inguinal hernia. The hernia sac at the direct space was reduced back into the preperitoneal space. The preperitoneal space was then carefully dissected manually. The medium Prolene hernia system was then utilized. The inner circular portion of mesh was flattened out in the preperitoneal space without difficulty. The outer portion was sutured to the pubic tubercle the folding edge of the inguinal ligament and the conjoined tendon using 0 Vicryl sutures. A slit was created in the mesh and the mesh was wrapped around the spermatic cord and sutured back to itself. The external oblique was then reapproximated using a running 2-0 Vicryl suture. The subcutaneous tissues were reapproximated using a 3-0 Vicryl sutures. The skin was closed using 4-0 Monocryl sutures. Skin glue was then applied. TYPE OF MESH USED: Medium Prolene hernia system LOCATION OF MESH: Preperitoneal and onlay FIXATION: 0 Vicryl sutures PREOPERATIVE DISCUSSION ON SMOKING CESSASTION: Yes PREOPERATIVE DISCUSSION ON MORBID OBESITY: Yes PREOPERATIVE DISCUSSION ON APPROPRIATE USE OF NARCOTIC USE: Yes PREOPERATIVE EDUCATION: Multi Modal, Smoking Cessation and Weight Loss with BMI over 35. DISPOSITION: Stable to recovery room
[2022-01-28] MEDS ORDERED: hydrALAZINE HCL 20 MG/ML 1 ML VIAL IVP ONE (10:25)
[2022-01-28] MEDS: HYDROmorphone 0.5 MG/0.5 ML SYRINGE IVP PRN ×3 (10:42→13:14)
[2022-01-28] MEDS ORDERED: KETOROLAC 15 MG/ML 1 ML VIAL IVP ONE (11:37)
[2022-01-28] MEDS ORDERED: SODIUM CHLORIDE 0.9% 1,000 ML IV ONE (11:38)
[2022-01-28] MEDS: IBUPROFEN 600 MG TAB PO SCH ×2 (14:47→21:17)
[2022-01-28] MEDS: HEPARIN SODIUM,PORCINE/PF 5,000 UNIT/0.5 ML SYRINGE SQ SCH (14:48)
[2022-01-28] MEDS: D5-0.45% NACL WITH KCL 20MEQ/L 1,000 ML IV SCH ×2 (15:34→17:20)
[2022-01-28] MEDS ORDERED: ALBUTEROL NEBULIZED 2.5 MG/3 ML INHALATION PRN (17:27)
[2022-01-28] MEDS ORDERED: QUEtiapine 25 MG TAB PO PRN (17:28)
[2022-01-28] MEDS ORDERED: DONEPEZIL 10 MG TAB PO SCH (21:00)
[2022-01-28] MEDS ORDERED: DOXAZOSIN 2 MG TAB PO SCH (21:00)
[2022-01-28] MEDS: MEMANTINE 10 MG TAB PO SCH (21:17)
[2022-01-28] MEDS: SYMBICORT 80-4.5 MCG INHALER INHALATION SCH (21:17)
[2022-01-28] MEDS: FAMOTIDINE 20 MG TAB PO SCH (21:17)
[2022-01-28 22:37] VITALS: RESP 18
[2022-01-29] MEDS: HEPARIN SODIUM,PORCINE/PF 5,000 UNIT/0.5 ML SYRINGE SQ SCH ×2 (00:54→08:31)
[2022-01-29] MEDS: HYDROmorphone 0.5 MG/0.5 ML SYRINGE IVP PRN ×2 (02:28→05:17)
--- NOTE | 2022-01-29 05:22 | CONS ---
CONSULTATION REASON FOR CONSULTATION: Advice regarding dementia and other medical issues requested by Dr. Gonzalez. HISTORY OF PRESENT ILLNESS: This 81-year-old gentleman with a past medical history of asthma and dementia, being followed by Dr. Meryl Gonzalez in the outpatient setting, underwent open repair of the right inguinal hernia with mesh by Dr. Gonzalez. The patient is mildly confused. Otherwise, there is no history of fever, rigors, or chills. No headache, shortness of breath, chest pain, palpitation at this time. PAST MEDICAL HISTORY: Dementia and asthma. Rest were reviewed. HOME MEDICATIONS: Reviewed and include Aricept, dose and rest of medications reviewed. ALLERGIES: None. FAMILY HISTORY: Could not be taken. SOCIAL HISTORY: Could not be taken. REVIEW OF SYSTEMS: Could not be taken. PHYSICAL EXAMINATION: VITAL SIGNS: Pulse is 42, blood pressure 114/62, respirations 17. HEENT: Conjunctivae normal. NECK: No JVD. CARDIOVASCULAR: S1 and S2. RESPIRATIONS: Breath sounds diminished at the bases. No rhonchi. No crackles. ABDOMEN: Soft, status post surgery. LEGS: No edema. NERVOUS SYSTEM: No focal deficits. LABORATORY DATA: Preop labs are noted normal. ASSESSMENT: 1. Status post inguinal hernia repair. 2. Dementia. 3. Asthma. 4. Hypertension. RECOMMENDATIONS: In this 81-year-old gentleman who presented after surgery, at this time I would recommend resume the home medications. Use Seroquel p.r.n. and close monitoring for any confusion. Otherwise, we will follow the patient closely with you. The patient has some bradycardia which appears to be stable, which could be monitored in the outpatient setting. Further recommendations to follow. MMODL / IJN: [id number] /
[2022-01-29] MEDS: MEMANTINE 10 MG TAB PO SCH (08:31)
[2022-01-29] MEDS: FAMOTIDINE 20 MG TAB PO SCH (08:31)
[2022-01-29] MEDS: IBUPROFEN 600 MG TAB PO SCH (08:31)
[2022-01-29] MEDS: LACTATED RINGERS 1,000 ML IV SCH (08:34)
[2022-01-29] MEDS: SYMBICORT 80-4.5 MCG INHALER INHALATION SCH (08:47)
[2022-01-29] MEDS ORDERED: LOSARTAN 50 MG TAB PO SCH (09:00)
--- NOTE | 2022-01-29 14:32 | P.DS ---
Providers Date of admission: 01/29/22 07:17 Expected date of discharge: 01/29/22 Attending physician: Mark Gonzalez Consults: 01/28/22 08:57 Consult Physician Routine Consulting Provider: Corey Carty Consult Reason/Comments: Medical management Do you want consulting provider notified?: Yes Primary care physician: Meryl Gonzalez Hospital Course: Discharge diagnosis 1. Right direct and indirect inguinal hernia status post open repair of right inguinal hernia with mesh Hospital course This is a 81-year-old male with a right inguinal hernia he is status post open repair with mesh placement. Patient tolerated surgery well. His pain is controlled. He is tolerating diet. He has been up and ambulating. He is having flatus. He is afebrile. Incision site clean dry and intact with minimal bruising. He is stable for discharge. Please refer to chart for any further details. Physician Manager Audio note has been reviewed by physician. Signing provider agrees with the documented findings, assessment, and plan of care. I have personally seen and examined the patient, reviewed the [employer] /PAs history, exam and MDM and agree with the assessment and plan as written. Based on total visit time, I have performed more than 50% of the visit. As above: Patient doing well. Minimal pain. Incision is clean and dry. May discharge. Patient Condition at Discharge: Stable Plan - Discharge Summary Discharge Rx Participant: Yes New Discharge Prescriptions: New Ibuprofen [Motrin] 600 mg PO Q8HR PRN #30 tab PRN Reason: Pain Acetaminophen Tab [Tylenol Tab] 650 mg PO Q4H PRN #30 tablet PRN Reason: Pain Continue Donepezil [Aricept] 10 mg PO HS Terazosin HCl 2 mg PO HS Fluticasone/Vilanterol [Breo Ellipta 100-25 Mcg Inhaler] 1 inhalation PO Q24HR PRN PRN Reason: asthma Albuterol Inhaler [Ventolin Hfa Inhaler] 1 - 2 puff INHALATION Q6H PRN PRN Reason: sob polyethylene glycoL 3350 [Miralax] 17 gm PO DAILY Memantine HCl 10 mg PO BID Losartan [Cozaar] 100 mg PO QAM Discharge Medication List Donepezil [Aricept] 10 mg PO HS 09/14/21 [History] Memantine HCl 10 mg PO BID 09/14/21 [History] Albuterol Inhaler [Ventolin Hfa Inhaler] 1 - 2 puff INHALATION Q6H PRN 01/25/22 [History] Fluticasone/Vilanterol [Breo Ellipta 100-25 Mcg Inhaler] 1 inhalation PO Q24HR PRN 01/25/22 [History] Losartan [Cozaar] 100 mg PO QAM 01/25/22 [History] Terazosin HCl 2 mg PO HS 01/25/22 [History] polyethylene glycoL 3350 [Miralax] 17 gm PO DAILY 01/25/22 [History] Acetaminophen Tab [Tylenol Tab] 650 mg PO Q4H PRN #30 tablet 01/29/22 [Rx] Ibuprofen [Motrin] 600 mg PO Q8HR PRN #30 tab 01/29/22 [Rx] Follow up Appointment(s)/Referral(s): Mark Gonzalez MD [Medical Doctor] - 02/06/22 2:45 pm Activity/Diet/Wound Care/Special Instructions: No lifting over 10 pounds You may shower. No soaking or tub baths for 2 weeks Very light activity until you are reevaluated at your follow up appointment with your surgeon Discharge Disposition: HOME SELF-CARE
[2022-01-29 14:51] VITALS: BP 198/98; PULSE 90; TEMP 97.7
--- NOTE | 2022-01-30 04:29 | PN ---
PROGRESS NOTE DATE OF SERVICE: 01/29/2022 SUBJECTIVE: This 81-year-old gentleman, who was admitted after hernia repair, is being improved significantly. The patient is confused, which is his baseline. No chest pain. No palpitation. OBJECTIVE: VITAL SIGNS: Pulse 59, blood pressure 127/77, respirations 15. CHEST: Clear to auscultation. CARDIOVASCULAR: S1, S2. ABDOMEN: Soft. NERVOUS SYSTEM: Noted. LABORATORY DATA: Not available. ASSESSMENT: 1. Status post inguinal hernia repair. 2. Dementia. 3. Asthma. 4. Hypertension. 5. Bradycardia, probably sinus. RECOMMENDATIONS AND DISCUSSION: This 81-year-old gentleman presented after surgery. I recommend to continue the current medications and follow up with primary care physician after discharge. Otherwise, rest of the medications per Surgery. Further recommendations to follow. MMODL / IJN: [id number] /
== END 2022-01-29 15:08 | disposition home or self-care (01) ==
LOC: OR 06:30 → 4SSUR 08:56 → OR 01-29 07:17 → 4SSUR 01-29 07:17
PROVIDERS: ADMIT Surgery; ATTEND Surgery
DX: K40.90 Unilateral inguinal hernia, without obstruction or gangrene, not specified as recurrent (principal); I10 Essential (primary) hypertension; K51.30 Ulcerative (chronic) rectosigmoiditis without complications; K59.00 Constipation, unspecified; Z86.010 Personal history of colon polyps; Z87.19 Personal history of other diseases of the digestive system; F03.90 Unspecified dementia, unspecified severity, without behavioral disturbance, psychotic disturbance, mood disturbance, and anxiety; Z82.49 Family history of ischemic heart disease and other diseases of the circulatory system; Z83.511 Family history of glaucoma; Z80.41 Family history of malignant neoplasm of ovary; Z98.890 Other specified postprocedural states; R00.1 Bradycardia, unspecified; J44.9 Chronic obstructive pulmonary disease, unspecified; Z79.51 Long term (current) use of inhaled steroids; Z79.899 Other long term (current) drug therapy
CPT/HCPCS: 49505; 94640 ×2; 88302; G0378; C1781; J2250; J0360; J1100; J0690; J2405; J3010; J1885; J2704; J1170 ×2; J1644 ×2